=== PATIENT | male | born 1965 | race Caucasian/White ===

== ENCOUNTER 2017-06-30 05:35 | Day surgery (SDC) | payer MEDICARE, MEDICAID ==
[~2017-06-30] VITALS: Ht 162.6 cm; Wt 70.5 kg
[~2017-06-30 05:35] MED LIST: BISM262O25 PO; BUDE8.43 NASAL; CARB-224 AU; DIPH25 PO; DOCU250C21 PO; FLUO15CR2 TP; GUAI100S42 PO; HC1C1.5 TP; HYDR-3110 PO; LAMO100 PO; LITH300T PO; LORA10TA7 PO; MULT-1259 PO; NEOM1OIN8 TP; QUET100T PO; SENN-30 PO; [UNRECOGNIZED DRUG - CODE] PO
[2017-06-30] MEDS ORDERED: RINGERS SOLUTION,LACTATED 1,000 ML IV ONE ×2 (05:53→06:30)
[2017-06-30 06:20] LABS: BASOPHILS # (AUTO) 0.02 K/uL (0.00-0.20); BASOPHILS % (AUTO) 0.3 % (0.0-2.0); EOSINOPHILS # (AUTO) 0.07 K/uL (0.00-0.70); EOSINOPHILS % (AUTO) 1.37 % (1.0-6.0); HEMATOCRIT 41.4 % (41-53); HEMOGLOBIN 14.2 g/dL (13.5-17.5); LYMPHOCYTES # (AUTO) 0.8 K/uL (1.0-4.8); LYMPHOCYTES % (AUTO) 15.2 % (22.0-44.0); MEAN CORPUSCULAR HEMOGLOBIN 30.3 pg (26.0-34.0); MEAN CORPUSCULAR HGB CONC 34.3 G/dL (31.0-37.0); MEAN CORPUSCULAR VOLUME 88 fL (80-100); MONOCYTES # (AUTO) 0.3 K/uL (0.1-1.0); MONOCYTES % (AUTO) 5.9 % (2.0-9.0); NEUTROPHILS # (AUTO) 4.1 K/uL (1.8-7.7); NEUTROPHILS % (AUTO) 77.2 % (40.0-70.0); PLATELET COUNT (AUTO) 154 K/uL (150-450); RED BLOOD CELL COUNT(AUTO) 4.68 MIL/uL (4.50-5.90); RED CELL DISTRIBUTION WIDTH 12.5 % (11.5-14.5); WHITE BLOOD COUNT (AUTO) 5.3 K/uL (4.5-11.0)
[2017-06-30 06:36] LABS: PROTHROMBIN TIME 10.3 SEC (9.4-11.6)
[2017-06-30 06:43] LABS: CALCIUM, TOTAL 9.4 mg/dL (8.8-10.5); CREATININE 1.33 mg/dL (0.60-1.30); POTASSIUM 3.8 mmol/L (3.5-5.1)
[2017-06-30 06:48] LABS: BILIRUBIN,TOTAL 0.3 mg/dL (0.1-1.0)
[2017-06-30] MEDS ORDERED: MIDAZOLAM HCL 5 MG/ML VIAL ONE (08:49)
[2017-06-30] MEDS ORDERED: KETAMINE HCL 50 MG/ML 10 ML VIAL ONE (08:51)
[2017-06-30] MEDS ORDERED: LIDOCAINE HCL/PF 2% 5 ML VIAL INJ ONE (12:00)
[2017-06-30] MEDS ORDERED: PROPOFOL 1% 20 ML VIAL IVP ONE (12:00)
[2017-06-30] MEDS ORDERED: SUCCINYLCHOLINE CHLORIDE 20 MG/ML 10 ML VIAL IVP ONE (12:00)
[2017-06-30] MEDS ORDERED: DEXAMETHASONE SOD PHOS 4 MG/ML VIAL IVP ONE (12:00)
[2017-06-30] MEDS ORDERED: ONDANSETRON HCL 4 MG/2 ML VIAL IVP ONE (12:00)
[2017-06-30] MEDS ORDERED: KETOROLAC TROMETHAMINE 60 MG/2 ML VIAL IM ONE (12:00)
[2017-06-30] MEDS ORDERED: GLYCOPYRROLATE 0.2 MG/ML VIAL IM ONE (12:00)
[2017-06-30] MEDS ORDERED: 0.9% SODIUM CHLORIDE 10 ML VIAL IVP ONE (12:00)
== END 2017-06-30 11:45 | disposition home or self-care (01) ==
LOC: SURGERY 05:35
PROVIDERS: ATTEND Dentist General Practice
DX: K05.30 Chronic periodontitis, unspecified (principal); K03.6 Deposits [accretions] on teeth; F31.9 Bipolar disorder, unspecified; F84.0 Autistic disorder; F79 Unspecified intellectual disabilities; Z88.8 Allergy status to other drugs, medicaments and biological substances; Z79.01 Long term (current) use of anticoagulants
CPT/HCPCS: 36415; 41899; 71010; 80053; 80175; 85025; 85610; 85730; 93005; J0330; J1100; J1885; J2250; J2405; J2704; J3490 ×3; J7120

== ENCOUNTER → 2018-10-19 | Day surgery (SDC) | payer OTHER, MEDICARE, MEDICAID ==
[~2018-10-19] VITALS: Ht 162.6 cm; Wt 70.0 kg
[~2018-10-19] MED LIST changes: +AMPICILLIN SODIUM 1 GM/VIAL ONE; +CLINDAMYCIN PHOS 150 MG/ML 4 ML VIAL ONE; -DOCU250C21 PO; +DOCU250C90 PO; +FentaNYL CITRATE-PF 100 MCG/2 ML VIAL IVP ONE; +LIDOCAINE/PF 2% 5 ML SYRINGE IVP ONE; +MIDAZOLAM HCL 2 MG/2 ML VIAL IVP ONE; +MIDAZOLAM HCL 5 MG/ML VIAL ONE; +ONDANSETRON HCL 4 MG/2 ML VIAL IVP ONE; +PROPOFOL 1% 20 ML VIAL IVP ONE; +RINGERS SOLUTION,LACTATED 1,000 ML IV ONE; +ROCURONIUM BROMIDE 10 MG/ML 5 ML VIAL IVP ONE; +SENN-176 PO; -SENN-30 PO
[2018-10-19 08:21] LABS: BASOPHILS % (AUTO) 0.3 % (0.0-2.0); EOSINOPHILS % (AUTO) 1.2 % (1.0-6.0); HEMATOCRIT 40.5 % (41-53); LYMPHOCYTES # (AUTO) 0.7 K/uL (1.0-4.8); LYMPHOCYTES % (AUTO) 15.3 % (22.0-44.0); MEAN CORPUSCULAR HGB CONC 34.7 G/dL (31.0-37.0); MEAN CORPUSCULAR VOLUME 90 fL (80-100); MONOCYTES # (AUTO) 0.3 K/uL (0.1-1.0); MONOCYTES % (AUTO) 6.4 % (2.0-9.0); NEUTROPHILS # (AUTO) 3.3 K/uL (1.8-7.7); NEUTROPHILS % (AUTO) 76.8 % (40.0-70.0); PLATELET COUNT (AUTO) 145 K/uL (150-450); RED BLOOD CELL COUNT(AUTO) 4.52 MIL/uL (4.50-5.90); RED CELL DISTRIBUTION WIDTH 12.5 % (11.5-14.5)
[2018-10-19 08:29] LABS: ANION GAP 4 mmol/L (8-16); CALCIUM, TOTAL 8.9 mg/dL (8.8-10.5); CARBON DIOXIDE 30 mmol/L (22-29); CHLORIDE 106 mmol/L (98-107); CREATININE 1.13 mg/dL (0.60-1.30); GLOMERULAR FILTR. RATE CALC > 60 mL/min (>60); GLUCOSE,RANDOM 106 mg/dL (70-110); POTASSIUM 3.8 mmol/L (3.5-5.1); SODIUM SERUM 140 mmol/L (136-145); UREA NITROGEN, BLOOD 15 mg/dL (7-18)
[2018-10-19 08:31] LABS: INR 0.9 (0.9-1.1); PROTHROMBIN TIME 9.9 SEC (9.4-11.6)
[2018-10-19 08:36] LABS: ALANINE AMINOTRANSFERASE 41 U/L (12-78); ALKALINE PHOSPHATASE 85 U/L (46-116); ASPARTATE AMINOTRANSFERASE 27 U/L (15-37); BILIRUBIN,TOTAL 0.2 mg/dL (0.1-1.0); TOTAL PROTEIN, SERUM 6.9 g/dL (6.4-8.2)
== END | disposition home or self-care (01) ==
LOC: SURGERY 06:46
PROVIDERS: ATTEND Dentist General Practice
DX: K05.30 Chronic periodontitis, unspecified (principal); K03.6 Deposits [accretions] on teeth; I10 Essential (primary) hypertension; K21.9 Gastro-esophageal reflux disease without esophagitis; L40.8 Other psoriasis; J31.0 Chronic rhinitis; F84.0 Autistic disorder; F72 Severe intellectual disabilities; F31.9 Bipolar disorder, unspecified; F63.81 Intermittent explosive disorder; Z91.81 History of falling; Z79.891 Long term (current) use of opiate analgesic; Z79.01 Long term (current) use of anticoagulants; Z88.0 Allergy status to penicillin; Z88.1 Allergy status to other antibiotic agents; Z98.890 Other specified postprocedural states; Z79.899 Other long term (current) drug therapy
CPT/HCPCS: 36415; 41899; 80053; 85025; 85610; 85730; 93005; J2250 ×2; J2405; J2704; J3010; J3490 ×3; J7120; J0290

== ENCOUNTER 2021-02-19 07:18 | Day surgery (SDC) | payer OTHER, MEDICARE, MEDICAID ==
[~2021-02-19] VITALS: Ht 162.6 cm; Wt 70.9 kg
[~2021-02-19 07:18] MED LIST changes: -AMPICILLIN SODIUM 1 GM/VIAL ONE; -CLINDAMYCIN PHOS 150 MG/ML 4 ML VIAL ONE; +DOCU250C21 PO; -DOCU250C90 PO; -FentaNYL CITRATE-PF 100 MCG/2 ML VIAL IVP ONE; -HYDR-3110 PO; +HYDR-3831 PO; -LIDOCAINE/PF 2% 5 ML SYRINGE IVP ONE; -MIDAZOLAM HCL 2 MG/2 ML VIAL IVP ONE; -MIDAZOLAM HCL 5 MG/ML VIAL ONE; -ONDANSETRON HCL 4 MG/2 ML VIAL IVP ONE; -PROPOFOL 1% 20 ML VIAL IVP ONE; -ROCURONIUM BROMIDE 10 MG/ML 5 ML VIAL IVP ONE; -SENN-176 PO; +SENN-277 PO; +SODIUM CHLORIDE 0.9% 100 ML ONE
[2021-02-19] MEDS ORDERED: CLINDAMYCIN PHOS 150 MG/ML 4 ML VIAL ONE (07:37)
[2021-02-19 08:12] LABS: BASOPHILS % (AUTO) 0.4 % (0.0-2.0); HEMATOCRIT 41.7 % (41-53); HEMOGLOBIN 14.3 g/dL (13.5-17.5); LYMPHOCYTES # (AUTO) 0.8 K/uL (1.0-4.8); LYMPHOCYTES % (AUTO) 16.5 % (22.0-44.0); MEAN CORPUSCULAR HEMOGLOBIN 30.3 pg (26.0-34.0); MEAN CORPUSCULAR HGB CONC 34.3 G/dL (31.0-37.0); MEAN CORPUSCULAR VOLUME 89 fL (80-100); MONOCYTES # (AUTO) 0.3 K/uL (0.1-1.0); MONOCYTES % (AUTO) 5.1 % (2.0-9.0); NEUTROPHILS # (AUTO) 3.8 K/uL (1.8-7.7); PLATELET COUNT (AUTO) 141 K/uL (150-450); RED BLOOD CELL COUNT(AUTO) 4.71 MIL/uL (4.50-5.90); RED CELL DISTRIBUTION WIDTH 12.7 % (11.5-14.5)
[2021-02-19 08:22] LABS: ANION GAP 11 mmol/L (8-16); CALCIUM, TOTAL 9.2 mg/dL (8.8-10.5); CARBON DIOXIDE 25 mmol/L (22-29); CHLORIDE 107 mmol/L (98-107); CREATININE 1.15 mg/dL (0.60-1.30); GLOMERULAR FILTR. RATE CALC > 60 mL/min (>60); GLUCOSE,RANDOM 119 mg/dL (70-110); POTASSIUM 3.7 mmol/L (3.5-5.1); SODIUM SERUM 143 mmol/L (136-145); UREA NITROGEN, BLOOD 21 mg/dL (7-18)
[2021-02-19 08:23] LABS: INR 0.9 (0.9-1.1); PROTHROMBIN TIME 10.1 SEC (9.4-11.6)
[2021-02-19 08:33] LABS: ALANINE AMINOTRANSFERASE 38 U/L (12-78); ALBUMIN 4.5 g/dL (3.4-5.0); ALKALINE PHOSPHATASE 94 U/L (46-116); ASPARTATE AMINOTRANSFERASE 20 U/L (15-37); BILIRUBIN,TOTAL 0.2 mg/dL (0.1-1.0); TOTAL PROTEIN, SERUM 7.7 g/dL (6.4-8.2)
[2021-02-19] MEDS ORDERED: PROPOFOL 1% 20 ML VIAL IVP ONE (12:00)
[2021-02-19] MEDS ORDERED: ONDANSETRON HCL 4 MG/2 ML VIAL IVP ONE (12:00)
[2021-02-19] MEDS ORDERED: LIDOCAINE/PF 2% 5 ML VIAL IM ONE (12:00)
[2021-02-19] MEDS ORDERED: FentaNYL CITRATE PF 100 MCG/2 ML VIAL IVP ONE (12:00)
[2021-02-19] MEDS ORDERED: DEXAMETHASONE SOD PHOS 4 MG/ML VIAL IVP ONE (12:00)
[2021-02-19] MEDS ORDERED: SUCCINYLCHOLINE CHLORIDE 20 MG/ML 10 ML VIAL IVP ONE (12:00)
== END 2021-02-19 14:45 | disposition home or self-care (01) ==
LOC: SURGERY 07:18
PROVIDERS: ATTEND Dentist General Practice
DX: K02.9 Dental caries, unspecified (principal); K05.30 Chronic periodontitis, unspecified; K03.6 Deposits [accretions] on teeth; K59.00 Constipation, unspecified; F84.0 Autistic disorder; F41.9 Anxiety disorder, unspecified; F31.9 Bipolar disorder, unspecified; Z79.899 Other long term (current) drug therapy; Z98.890 Other specified postprocedural states; Z88.8 Allergy status to other drugs, medicaments and biological substances; Z88.0 Allergy status to penicillin
CPT/HCPCS: 41899; 71045; 80053; 85025; 85610; 85730; 93005; J0330; J1100; J2405; J2704; J3010; J3490 ×2; J7050; J7120; S0077